=== PATIENT | male | born 1975 | race Caucasian/White ===

== ENCOUNTER 2018-04-29 09:26 | Emergency (ER) | payer BC ==
[2018-04-29 09:43] VITALS: BP 150/100
[2018-04-29] MEDS ORDERED: ACETAMINOPHEN 325 MG TABLET PO ONE (09:59)
[2018-04-29] MEDS ORDERED: PENICILLIN V POTASSIUM 500 MG TABLET PO ONE (09:59)
[2018-04-29] MEDS ORDERED: LIDOCAINE 2% VISCOUS SOLN 20 ML UDCUP PO ONE (09:59)
--- NOTE | 2018-04-29 10:02 | ER Document Report ---
HPI - HPI Patient complains to provider of: Dental pain Time Seen by Provider: 04/29/18 09:54 Onset/Duration: Gradual Quality of pain: Achy Pain Level: 5 Context: Patient complains of dental pain to right upper jaw for the past several weeks that worsened today. Patient denies any fever or facial swelling. Patient complains of a tender spot to his gingiva. Associated Symptoms: denies: Fever Exacerbated by: Denies Relieved by: Denies Similar symptoms previously: Yes Recently seen / treated by doctor: No - ROS ROS below otherwise negative: Yes Systems Reviewed and Negative: Yes All other systems reviewed and negative - GASTROINTESTINAL Gastrointestinal: DENIES: Nausea, Patient vomiting - MUSCULOSKELETAL Musculoskeletal: DENIES: Back Pain, Neck Pain - DERM Skin Color: Normal Skin Problems: None Past Medical History - General Information source: Patient - Social History Smoking Status: Never Smoker Frequency of alcohol use: None Drug Abuse: None Occupation: None Lives with: Family Family History: Reviewed & Not Pertinent - Past Medical History Cardiac Medical History: Reports: Hx Hypercholesterolemia Endocrine Medical History: Reports: Hx Diabetes Mellitus Type 2 Past Surgical History: Reports: Hx Orthopedic Surgery - Immunizations Hx Diphtheria, Pertussis, Tetanus Vaccination: Yes Vertical Provider Document - CONSTITUTIONAL Agree With Documented VS: Yes Exam Limitations: No Limitations General Appearance: WD/WN, No Apparent Distress - INFECTION CONTROL TRAVEL OUTSIDE OF THE [place] IN LAST 30 DAYS: No - HEENT HEENT: Atraumatic, Normocephalic. negative: Pharyngeal Exudate, Pharyngeal Tend erness, Pharyngeal Erythema Mouth Diagram: 1 - Gingival tenderness, no drainable abscess - NECK Neck: Normal Inspection, Supple. negative: Lymphadenopathy-Left, Lymphadenopathy-Right - RESPIRATORY Respiratory: Breath Sounds Normal, No Respiratory Distress - CARDIOVASCULAR Cardiovascular: Regular Rate, Regular Rhythm - MUSCULOSKELETAL/EXTREMETIES Musculoskeletal/Extremeties: MAEW - NEURO Level of Consciousness: Awake, Alert, Appropriate Motor/Sensory: No Motor Deficit - DERM Integumentary: Warm, Dry, No Rash Course - Vital Signs Vital signs: Temp Pulse Resp BP Pulse Ox 97.7 F 70 17 150/100 H 97 04/29/18 09:41 04/29/18 09:41 04/29/18 09:41 04/29/18 09:41 04/29/18 09:41 Discharge - Discharge Clinical Impression: Toothache Condition: Stable Disposition: HOME, SELF-CARE Instructions: Penicillin V K ([facility]), Toothache ([facility]) Additional Instructions: Return immediately for any new or worsening symptoms Followup with a dental care provider, call tomorrow to make a followup appointment Use topical Orajel to tender lesion to the gingiva Prescriptions: Naproxen [Naprosyn 250 Nmg Tablet] 1 tab PO BID #14 tablet Penicillin V Potassium [Penicillin Vk 500 mg Tablet] 500 mg PO BID #20 tablet Tramadol HCl [Ultram 50 mg Tablet] 50 mg PO ASDIR PRN #8 tablet PRN Reason: Referrals: [facility] [Provider Group] - Follow up as needed
== END 2018-04-29 10:21 | disposition home or self-care (01) ==
LOC: ER 09:26
DX: K08.9 Disorder of teeth and supporting structures, unspecified (principal); R68.84 Jaw pain; E78.00 Pure hypercholesterolemia, unspecified; E11.9 Type 2 diabetes mellitus without complications
CPT/HCPCS: 99282; J3490

== ENCOUNTER 2019-06-10 16:38 | Emergency (ER) | payer BC, OTHER ==
[2019-06-10] MEDS ORDERED: DIPH/PERTUSS(ACELL)/TETANUS VAC/PF 0.5 ML SYR (>=10YO) IM ONE ×2 (17:14→19:26)
--- NOTE | 2019-06-10 17:16 | ER Document Report ---
ED Medical Screen (RME) - General Chief Complaint: Finger Injury Stated Complaint: FINGER INJURY Time Seen by Provider: 06/10/19 17:10 [facility] Care Provider: [facility] [Primary [facility]] - Follow up as needed Mode of Arrival: Ambulatory Information source: Patient Notes: 44-year-old male presents emergency department with left index finger tip avulsion. Patient reports he was working with a table saw his child scared him and states fall slipped. Unsure when last tetanus was. Patient is a diabetic. No active bleeding. I have greeted and performed a rapid initial assessment of this patient. A comprehensive ED assessment and evaluation of the patient, analysis of test results and completion of the medical decision making process will be conducted by additional ED providers. TRAVEL OUTSIDE OF THE [place] IN LAST 30 DAYS: No - Related Data Allergies/Adverse Reactions: No Known Allergies Allergy (Verified 04/29/18 09:26) Home Medications: Metformin. Glipizide Past Medical History - Social History Frequency of alcohol use: None Drug Abuse: None - Past Medical History Cardiac Medical History: Reports: Hx Hypercholesterolemia Endocrine Medical History: Reports: Hx Diabetes Mellitus Type 2 Renal/ Medical History: Denies: Hx Peritoneal Dialysis Past Surgical History: Reports: Hx Orthopedic Surgery - Immunizations Hx Diphtheria, Pertussis, Tetanus Vaccination: Yes Doctor's Discharge - Discharge Referrals: [facility] [Primary Care Provider] - Follow up as needed
--- NOTE | 2019-06-10 18:04 | RADIOLOGY REPORT (SQ) ---
EXAM DESCRIPTION: FINGER LEFT COMPLETED DATE/TIME: 06/10/2019 4:49 pm REASON FOR STUDY: finger lac. 2 injury tonight. COMPARISON: None. NUMBER OF VIEWS: Three views. TECHNIQUE: AP, lateral, and oblique images acquired of the left 2nd digit LIMITATIONS: None. FINDINGS: MINERALIZATION: Normal. BONES: There is amputation and comminuted fracture of the distal tuft of the distal phalanx 2nd digit . Normal joint space alignment. . SOFT TISSUES: Laceration at the distal tip of the 2nd digit. No radiopaque foreign body. OTHER: No other significant finding. IMPRESSION: Laceration with amputation and comminuted fracture of the distal tuft of the distal phal anx 2nd digit. No radiopaque foreign body. TECHNICAL DOCUMENTATION: JOB ID: [id number] 2010 [employer]- All Rights Reserved Reading location - IP/workstation name: [email or web address]
[2019-06-10] MEDS ORDERED: AMOXICILLIN TR/POT CLAVULANATE 875-125 MG TAB PO ONE (19:09)
[2019-06-10] MEDS ORDERED: HYDROCODONE/ACETAMINOPHEN 5-325 MG (6 TAB/ER DISP) PO PRN (19:15)
--- NOTE | 2019-06-10 19:15 | ER Document Report ---
HPI - HPI Patient complains to provider of: Left finger injury Time Seen by Provider: 06/10/19 17:10 Onset: Just prior to arrival Onset/Duration: Sudden Pain Level: 3 Context: 44-year-old male presents emergency department with injury to the left index finger. Reports he was working with table saw and his child came out and scared him and he cut off the tip of his index finger. Unsure of last tetanus. Patient is a diabetic. No other complaints. Associated Symptoms: None Exacerbated by: Denies Relieved by: Denies Similar symptoms previously: No Recently seen / treated by doctor: No - CONSTITUTIONAL Constitutional: DENIES: Fever, Chills - MUSCULOSKELETAL Musculoskeletal: REPORTS: Extremity pain Past Medical History - General Information source: Patient - Social History Smoking Status: Never Smoker Frequency of alcohol use: None Drug Abuse: None Lives with: Family Family History: Reviewed & Not Pertinent Patient has suicidal ideation: No Patient has homicidal ideation: No - Past Medical History Cardiac Medical History: Reports: Hx Hypercholesterolemia Endocrine Medical History: Reports: Hx Diabetes Mellitus Type 2 Renal/ Medical History: Denies: Hx Peritoneal Dialysis Past Surgical History: Reports: Hx Orthopedic Surgery - Immunizations Hx Diphtheria, Pertussis, Tetanus Vaccination: Yes Vertical Provider Document - CONSTITUTIONAL Agree With Documented VS: Yes Exam Limitations: No Limitations General Appearance: WD/WN, No Apparent Distress - pt calm, making jokes - INFECTION CONTROL TRAVEL OUTSIDE OF THE [place] IN LAST 30 DAYS: No - HEENT HEENT: Atraumatic, Normocephalic - NECK Neck: Supple - RESPIRATORY Respiratory: No Respiratory Distress - CARDIOVASCULAR Cardiovascular: Regular Rate - MUSCULOSKELETAL/EXTREMETIES Musculoskeletal/Extremeties: Tender - Left index finger with lateral avulsion laceration no active bleeding. - NEURO Level of Consciousness: Awake, Alert, Appropriate Motor/Sensory: No Motor Deficit - DERM Integumentary: Warm, Dry Course - Re-evaluation Re-evalutation: 06/10/19 19:11 Patient with amputation and comminuted fracture of the distal tuft. Dr. Boswell contacted. He advises dressing antibiotics and follow-up with him in the office tomorrow. Patient was instructed on this. Patient is in good mood. Laughing telling jokes. Finger X-Ray 06/10/19 17:14 IMPRESSION: Laceration with amputation and comminuted fracture of the distal tuft of the distal phalanx 2nd digit. No radiopaque foreign body. - Diagnostic Test Radiology reviewed: Image reviewed, Reports reviewed - Consults dr boswell Time consulted: 19:25 Reason for consultation: 06/10/19 19:25 finger amputation comminuted fx Consulted provider: follow-up in office Procedures - Laceration/Wound Repair Left 2nd digit Time completed: 19:24 Wound length (cm): 2 Wound's Depth, Shape: Other - Skin avulsion Laceration pre-procedure: Shur-Clens applied Volume Anesthetic (mLs): 0 Wound explored: Clean Irrigated w/ Saline (mLs): 250 Wound Repaired With: Other - None Post-procedure wound care: Sterile dressing applied Hands back picture: 1 - Skin avulsion no active bleeding, area cleaned well, covered with Xeroform bacitracin and dressing. Discharge - Discharge Clinical Impression: index finger fracture and amputation Condition: Stable Disposition: HOME, SELF-CARE Instructions: Augmentin ([facility]), Fractured Finger ([facility]), Oral Narcotic Medication ([facility]) Additional Instructions: *You have been evaluated for a left index finger laceration with partial amputation and comminuted fracture *Maintain the dressing, keep the dressing clean *Follow up with Dr. Boswell tomorrow. Call his office for an appointment *Take medication as prescribed *Return to ED for worsening condition, changes, needs Prescriptions: Amoxicillin/Potassium Clav [Augmentin 875-125 Tablet] 1 each PO BID #20 tablet Referrals: [facility] [NO LOCAL MD] - Follow up as needed VARGAS BOSWELL DO [ACTIVE STAFF] - Follow up tomorrow (call for appointment)
== END 2019-06-10 19:36 | disposition home or self-care (01) ==
LOC: ER 16:38
DX: S62.631B Displaced fracture of distal phalanx of left index finger, initial encounter for open fracture (principal); W27.8XXA Contact with other nonpowered hand tool, initial encounter; Y93.89 Activity, other specified; E11.9 Type 2 diabetes mellitus without complications; Z23 Encounter for immunization
CPT/HCPCS: 99283; 90471; 73140; 90715; J3490